=== PATIENT | male | born 1960 | race Caucasian/White ===

== ENCOUNTER 2019-04-02 13:42 | Emergency (ER) | payer OTHER ==
[2019-04-02] MEDS ORDERED: IV NS 0.9% 1,000 ML BAG IV ONE (14:30)
== END 2019-04-02 16:14 | disposition home or self-care (01) ==
DX: R42 Dizziness and giddiness (principal); R53.1 Weakness; I10 Essential (primary) hypertension; E11.9 Type 2 diabetes mellitus without complications; Z86.73 Personal history of transient ischemic attack (TIA), and cerebral infarction without residual deficits; Z60.2 Problems related to living alone
CPT/HCPCS: 36415; 80048; 80076; 84484; 85025; 85730; 93005; 96360; 99284; J7030